=== PATIENT | male | born 1960 | race African-American/Black ===

== ENCOUNTER 2019-03-13 13:32 | Inpatient (IN) | payer BC, MEDICARE ==
[~2019-03-13 13:32] MED LIST: Dexamethasone 20 MG/5 ML VIAL ONE; Heparin 10,000 UNITS/ 10 ML VIAL ONE; Lidocaine 1% PF 5 ML VIAL ONE; Ondansetron PF 4 MG/2 ML Vial ONE; PROPOFOL 200 MG/20 ML VIAL ONE; Rocuronium Bromide 10 MG/ML (10ML VIAL) ONE
[2019-03-13] MEDS ORDERED: Morphine 4 MG/ML VIAL ONE (14:09)
[2019-03-13] MEDS ORDERED: Lidocaine 2% PF 5 ML VIAL ONE (15:08)
[2019-03-13] MEDS ORDERED: Heparin 10,000 UNITS/1 ML VIAL ONE (15:08)
[2019-03-13] MEDS ORDERED: Bacitracin Zinc Ointment 30 gm TUBE ONE (15:08)
[2019-03-13] MEDS ORDERED: Bupivacaine PF 0.5% 30 ML VIAL ONE ×2 (15:08→23:12)
[2019-03-13] MEDS ORDERED: Betamet Acet/Betamet Na Ph 30 MG/5 ML VIAL ONE (15:08)
[2019-03-13] MEDS ORDERED: Hetastarch 6% 500 ML 500 ML ONE (15:08)
[2019-03-13] MEDS ORDERED: HYDROmorphone 2 MG/ML VIAL ONE (15:12)
[2019-03-13] MEDS ORDERED: Fentanyl 100 MCG/2 ML VIAL ONE ×3 (15:29→18:03)
[2019-03-13] MEDS ORDERED: Heparin 25,000 units/D5W 500 ML ONE (20:11)
[2019-03-13] MEDS ORDERED: Ondansetron HCl/PF 4 MG/2 ML Vial IVP PRN (23:54)
[2019-03-13] MEDS ORDERED: Promethazine HCl 25 MG/ML VIAL IM PRN (23:54)
[2019-03-13] MEDS ORDERED: PACU-Morphine 4MG/ML VIAL SLOW IVP PRN (23:54)
[2019-03-13] MEDS ORDERED: Promethazine HCl 25 MG/ML VIAL SLOW IVP PRN (23:54)
[2019-03-13] MEDS ORDERED: HYDROmorphone 2 MG/ML VIAL SLOW IVP PRN (23:54)
[2019-03-14] MEDS ORDERED: Fentanyl 100 MCG/2 ML VIAL ONE (00:02)
[2019-03-14] MEDS ORDERED: Ondansetron PF 4 MG/2 ML Vial IV PRN (00:06)
[2019-03-14] MEDS ORDERED: Bisacodyl 10 MG SUPP PR PRN (00:06)
[2019-03-14] MEDS ORDERED: Milk Of Magnesia 30 ML UDCUP PO PRN (00:06)
[2019-03-14] MEDS ORDERED: [UNRECOGNIZED DRUG - REMARK] FS SCH (00:15)
[2019-03-14] MEDS ORDERED: Vancomycin HCl 1 GM in Premix Bag 1 BAG IVPB SCH (01:00)
[2019-03-14 01:18] VITALS: BMI 39.6
[2019-03-14 01:56] LABS: Hemoglobin 12.6 g/dL (14.0-18.0); Hypochromia SLIGHT = 6-15 cells (100X) (0-5/hpf); Lymphocytes 5 % (21-51); MDiff Complete? YES; Mean Corpuscular HGB CONC 34.2 g/dL (32.0-36.0); Mean Corpuscular Hemoglobin 31.1 pg (27.0-31.0); Mean Corpuscular Volume 91.2 fL (78.0-98.0); Mean Platelet Volume 9.4 fL (7.4-10.4); Monocytes 6 % (0-10); Neutrophil 89 % (42-75); Platelet Count 144 thou/uL (130-400); Platelet Morphology Comment Appears Adequate; RBC Distribution Width 12.3 % (11.5-14.5); Red Blood Cell (RBC) Count 4.04 mill/uL (4.70-6.10); White Blood Cell (WBC) Count 12.3 thou/uL (4.8-10.8)
[2019-03-14] MEDS: HYDROcodone/Acetaminophen 5/325 mg Tablet PO PRN ×5 (01:56→18:00)
[2019-03-14] MEDS ORDERED: Heparin 25,000 units/D5W 500 ML IV SCH ×3 (02:30→10:30)
[2019-03-14] MEDS ORDERED: Ketorolac Tromethamine 30 MG/ML VIAL IVP SCH (06:00)
[2019-03-14] MEDS ORDERED: Aspirin 81 mg Enteric Coated Tablet PO SCH (09:00)
[2019-03-14] MEDS ORDERED: TETANUS AND DIPHTHERIA TOX/PF 0.5 ML DISP.SYRIN IM SCH (09:00)
[2019-03-14] MEDS: Morphine 4 MG/ML VIAL SLOW IVP PRN ×2 (11:20→20:27)
[2019-03-14] MEDS: Vancomycin HCl 1.5 GM in Sodium Chloride 0.9% 250 ML 300 ML IVPB SCH ×2 (11:22→22:44)
[2019-03-14] MEDS ORDERED: HYDROcodone/Acetaminophen 5/325 mg Tablet PO PRN (19:53)
[2019-03-14] MEDS ORDERED: HYDROcodone/Acetaminophen 10/325 mg Tablet PO PRN (20:15)
[2019-03-14] MEDS: Gabapentin 300 MG CAP PO SCH (20:28)
[2019-03-14] MEDS: HYDROcodone/Acetaminophen 10/325 mg Tablet PO PRN (22:43)
[2019-03-15] MEDS: HYDROcodone/Acetaminophen 10/325 mg Tablet PO PRN ×4 (03:22→16:19)
[2019-03-15 04:32] LABS: #Basophils 0.1 thou/uL (0.0-0.2); #Lymphocytes 2.7 thou/uL (1.20-3.40); #Monocytes 1.3 thou/uL (0.11-0.59); #Neutrophils 8.6 thou/uL (1.40-6.50); %Basophils 0.7 % (0.0-1.0); %Eosinophils 0.3 % (0.0-10.0); %Lymphocytes 21.2 % (21.0-51.0); %Neutrophils 67.7 % (42.0-75.0); Hemoglobin 10.5 g/dL (14.0-18.0); Mean Corpuscular HGB CONC 31.5 g/dL (32.0-36.0); Mean Corpuscular Hemoglobin 29.5 pg (27.0-31.0); Mean Corpuscular Volume 93.6 fL (78.0-98.0); Mean Platelet Volume 8.8 fL (7.4-10.4); Platelet Count 162 thou/uL (130-400); RBC Distribution Width 12.5 % (11.5-14.5); Red Blood Cell (RBC) Count 3.58 mill/uL (4.70-6.10); White Blood Cell (WBC) Count 12.6 thou/uL (4.8-10.8)
[2019-03-15 04:37] LABS: PTT 26.8 SEC (22.9-36.1); Prothrombin Time 13.6 SEC (12.0-14.7)
[2019-03-15] MEDS: Gabapentin 300 MG CAP PO SCH ×2 (08:37→16:19)
[2019-03-15] MEDS ORDERED: Aspirin 325 mg Enteric Coated Tablet PO SCH (09:00)
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
[2019-03-15 10:28] LABS: Vancomycin, Trough 8.5 ug/mL
[2019-03-15] MEDS: Vancomycin HCl 1.5 GM in Sodium Chloride 0.9% 250 ML 300 ML IVPB SCH (11:21)
[2019-03-15] MEDS ORDERED: Heparin 25,000 units/D5W 500 ML IV SCH (11:45)
[2019-03-15 16:05] VITALS: BP 113/65; TEMP 97.1
[2019-03-15] MEDS ORDERED: Vancomycin HCl 1.75 GM in Sodium Chloride 0.9% 500 ML IVPB SCH (19:00)
== END 2019-03-15 16:40 | disposition home or self-care (01) | DRG 501 ==
LOC: SDC 13:32 → SURG A 03-14 00:38
PROVIDERS: ADMIT Orthopaedic Surgery Hand Surgery; ATTEND Orthopaedic Surgery Hand Surgery
PROC: 0JDH0ZZ Extraction of Left Lower Arm Subcutaneous Tissue and Fascia, Open Approach (ICD-10-PCS; principal; 2019-03-14)
PROC: 01Q50ZZ Repair Median Nerve, Open Approach (ICD-10-PCS; 2019-03-14)
PROC: 01N40ZZ Release Ulnar Nerve, Open Approach (ICD-10-PCS; 2019-03-14)
PROC: 01Q40ZZ Repair Ulnar Nerve, Open Approach (ICD-10-PCS; 2019-03-14)
DX: S66.121A Laceration of flexor muscle, fascia and tendon of left index finger at wrist and hand level, initial encounter (principal); S65.012A Laceration of ulnar artery at wrist and hand level of left arm, initial encounter; S61.512A Laceration without foreign body of left wrist, initial encounter; S66.127A Laceration of flexor muscle, fascia and tendon of left little finger at wrist and hand level, initial encounter; S66.123A Laceration of flexor muscle, fascia and tendon of left middle finger at wrist and hand level, initial encounter; S66.125A Laceration of flexor muscle, fascia and tendon of left ring finger at wrist and hand level, initial encounter; W18.39XA Other fall on same level, initial encounter; Y93.89 Activity, other specified; Y92.89 Other specified places as the place of occurrence of the external cause; S64.02XA Injury of ulnar nerve at wrist and hand level of left arm, initial encounter; S64.12XA Injury of median nerve at wrist and hand level of left arm, initial encounter
CPT/HCPCS: 36415; 80202; 85025; 85610; 85730; 90714; J0702; J1100; J1170; J1644; J2001; J2270; J2405; J2704; J3010; J3370; J7050; S0020